=== PATIENT | female | born 1980 | race African-American/Black ===

== ENCOUNTER 2018-09-05 08:52 | Outpatient (CLI) | payer MEDICAID ==
--- NOTE | 2018-09-05 10:58 | ULT ---
RIGHT BREAST ULTRASOUND: Date: 09/05/18 HISTORY: Right breast mass. Correlation is made with mammograms from same date. FINDINGS: Sonographic evaluation of the palpable abnormality in the right upper outer breast demonstrates a 2.2 x 1.5 x 2.5 cm cyst, corresponding to the mammographic abnormality. Adjacent to this is a smaller co mplex mass measuring 7.0 x 5.0 x 8.0 mm. This should be followed up with an ultrasound in 6 months. IMPRESSION: BIRADS Category 3 - Probably benign findings. Follow-up ultrasound is recommended in 6 months. The facility will notify patient of need for additional imaging services. POS: OFF
== END 2018-09-05 08:53 | disposition home or self-care (01) ==
LOC: BICMAMMO 08:52
PROVIDERS: ATTEND Nurse Practitioner Family
DX: N63.11 Unspecified lump in the right breast, upper outer quadrant (principal); Z80.3 Family history of malignant neoplasm of breast
CPT/HCPCS: 77066; G0279

== ENCOUNTER 2019-03-10 08:17 | Outpatient (CLI) | payer MEDICAID ==
--- NOTE | 2019-03-10 08:59 | ULT ---
LIMITED RIGHT BREAST ULTRASOUND: 03/10/2019 PROVIDED CLINICAL HISTORY: Right breast mass. COMPARISON: 09/05/2018 FINDINGS: Simple appearing cyst at the 10:30 location is redemonstrated. A circumscribed, hypoechoic mass, leonila suring about 8 mm, immediately adjacent to the simple cyst, is redemonstrated. There is no posterior shadowing or lobulation to the mass margins. No interval growth. IMPRESSION: BI-RADS category 3-Probably benign findings. The 8 mm, hypoechoic mass at the 10:30 position of the right breast may reflect a debris-filled cyst. Six-month follow-up ultrasound is recommended at the time of yearly bilateral mammography, which will be diagnostic in this case. POS: OFF
== END 2019-03-10 08:18 | disposition home or self-care (01) ==
LOC: BICULT 08:17
PROVIDERS: ATTEND Nurse Practitioner Family
DX: N60.01 Solitary cyst of right breast (principal); N63.11 Unspecified lump in the right breast, upper outer quadrant